=== PATIENT | female | born 1950 | race Two or more races ===

== ENCOUNTER 2019-01-03 05:44 | Day surgery (SDC) | payer MEDICARE, BC ==
--- NOTE | 2019-01-02 18:00 | Pre-op HX & Phy Repo 2 SIG ---
DATE OF ADMISSION: 01/03/2019 DATE OF SURGERY: 01/03/2019. PREOPERATIVE DIAGNOSIS: Puckering of macula, right eye. BRIEF NOTE: This is a first [place] admission for the patient. This is a very nice 68-year-old lady, who complained of blurred vision in the right eye for several months. On examination, she was found to have a dense epiretinal membrane on that side and is admitted for a pucker peel. PAST OCULAR HISTORY: Remarkable for cataract surgery done in both eyes in the past. She also has diabetes with minimal diabetic retinopathy. She is admitted for a pars plana vitrectomy with membrane dissection and endolaser as needed on the right. PAST MEDICAL HISTORY: Remarkable for diabetes since 2008. She is controlled on metformin. MEDICATIONS: She also uses losartan, alendronate, montelukast, and fluticasone. She takes atorvastatin for elevated cholesterol. ALLERGIES: She has no known allergies. OCULAR EXAMINATION: Best vision at the time of admission was 20/70 in the right eye and 20/30- in the left with pressures of 17 and 16. The anterior segments were quiet with posterior chamber lenses well positioned in either eye. Fundus examination showed a 0.3 cup in either eye. The right eye showed a moderately dense epiretinal membrane with evidence of retinal thickening and edema. No kingsley macular hole was seen. The left fundus appeared benign but no significant diabetic changes. The macula was benign on this side. ASSESSMENT: Puckering of macula, right eye. PLAN: The plan is to perform a pars plana vitrectomy with membrane peel and endolaser as needed and a possible gas injection. The risks and benefits of surgery have been gone over with the patient with the potential for infection, hemorrhage, glaucoma, and remote possibility of loss of the eye. The risk of anesthesia was discussed. The patient understands and consents to the surgery, which will be performed tomorrow morning. Bob Ma M.D. DR: FOREIGN JOB#: [id number] CC:
[~2019-01-03] VITALS: Ht 147.3 cm; Wt 70.3 kg
[2019-01-03] VITALS (10 sets, daily range): BP systolic 114–145; BP diastolic 57–78
[2019-01-03] MEDS ORDERED: Indocyanine Green 25mg Inj INJ ONE ×2 (06:00→07:15)
[2019-01-03] MEDS ORDERED: Pred Forte 1% Opth Susp 1ml RIGHT EYE SCH (06:00)
[2019-01-03] MEDS: Phenylephrine 2.5% Op 2ml Soln RIGHT EYE SCH ×3 (06:24→06:59)
[2019-01-03] MEDS: Vigamox Opth Soln 3ml RIGHT EYE SCH ×3 (06:24→06:59)
[2019-01-03] MEDS: Flurbiprofen 0.03% Opth Sol 2.5ml RIGHT EYE SCH ×3 (06:24→06:59)
[2019-01-03] MEDS: Cyclopentolate 1% Opth Sol 2ml RIGHT EYE SCH ×3 (06:24→06:59)
[2019-01-03] MEDS ORDERED: VITAMIN B122500 MCG PO (06:51)
[2019-01-03] MEDS ORDERED: LISINOPRIL10 MG ORAL (06:51)
[2019-01-03] MEDS ORDERED: METFORMIN HCL500 M1 ORAL (06:51)
--- NOTE | 2019-01-03 07:36 | Pre-Procedure Note/Attestation ---
Pre-Procedure Note/Attestation Complete Prior to Procedure Planned Procedure: right Procedure Narrative: PPV, ICG assisted membrane peel, possible endolaser, possible gas injection Right eye Indications for Procedure Pre-Operative Diagnosis: Puckering of macula right eye Attestation I attest that I discussed the nature of the procedure; its benefits; risks and complications; and alternatives (and the risks and benefits of such alternatives ), prior to the procedure, with the patient (or the patient's legal dental sales representative). I attest that, if there was a reasonable possibility of needing a blood transfusion, the patient (or the patient's legal dental sales representative) was given the [facility] standardized written summary, pursuant to the [place] Elisabet Blood Safety Act ([place] Health and Safety Code # 1645, as amended). I attest that I re-evaluated the patient just prior to the surgery and that there has been no change in the patient's H&P, except as documented below: Bob Ma MD Jan 03, 2019 07:36
[2019-01-03] MEDS ORDERED: HYDROcodone/Acetamin 5/325 tab ORAL PRN (07:45)
[2019-01-03] MEDS ORDERED: NS Irrig 1000ml ONE (09:00)
[2019-01-03] MEDS ORDERED: Propofol 200mg/20ml IV ONE (09:00)
[2019-01-03] MEDS ORDERED: LR 1000ml ONE (09:00)
[2019-01-03] MEDS ORDERED: Sterile Water Irrig 1000ml IRRIG ONE (09:00)
[2019-01-03] MEDS ORDERED: fentaNYL 100 mcg/2 mL IV ONE (09:00)
[2019-01-03] MEDS ORDERED: LR 1000ml 1,000 ML IVLG SCH (09:28)
--- NOTE | 2019-01-03 09:28 | Anethesia Preoperative Eval ---
Anesthesia Pre-op PMH/ROS General Date of Evaluation: Jan 03, 2019 Time of Evaluation: 08:55 Anesthesiologist: Benjamin ASA Score: ASA 3 Mallampati Score Class I : Soft palate, uvula, fauces, pillars visible Class II: Soft palate, uvula, fauces visible Class III: Soft palate, base of uvula visible Class IV: Only hard plate visible Mallampati Classification: Class II Surgeon: Francesca Diagnosis: Diabetic retinopathy Surgical Procedure: R eye PPV Anesthesia History: none Social History: smoking - h/o Family History: no anesthesia problems Allergies: Coded Allergies: No Known Allergies (Unverified , 01/02/19) Medications: see eMAR Patient NPO?: Yes Past Medical History Cardiovascular: Reports: HTN - mild, stable; Denies: CAD, PA, valve dz, arrhythmia, other Pulmonary: Reports: JORDANA; Denies: asthma, COPD, other Gastrointestinal/Genitourinary: Reports: GERD; Denies: CRI, ESRD, other Neurologic/Psychiatric: Denies: dementia, CVA, depression/anxiety, TIA, other Endocrine: Reports: DM - stable on pills; Denies: hypothyroidism, steroids, other HEENT: Reports: cataract (L), cataract (R) - bilateral s/p Sx Hematology/Immune: Denies: anemia, DVT, bleeding disorder, other Musculoskeletal/Integumentary: Reports: DJD; Denies: OA, RA, DDD, edema, other Other: obesity PMH Narrative: as above PSxH Narrative: bilateral cataracts, Elbow Sx Anesthesia Pre-op Phys. Exam Physician Exam Last Vital Signs Date Time Temp Pulse Resp B/P (MAP) Pulse Ox O2 Delivery O2 Flow Rate FiO2 01/03/19 06:26 Room Air 01/03/19 06:26 97.9 71 18 120/63 97 Constitutional: NAD Neurologic: CN 2-12 intact Cardiovascular: RRR, no M/R/G Respiratory: CTA Gastrointestinal: other - obesity Airway Exam Mallampati Score: Class II MO: limited Neck: short ROM: limited Teeth: missing Dentures: no upper, no lower Anesthesia Pre-op A/P Labs Chemistry Test 01/03/19 06:05 Potassium Level 3.8 MMOL/L (3.5-5.1) Studies Pre-op Studies: EKG - NSR Risk Assessment & Plan Assessment: ASA 3 Plan: MAC with retrobulbar block Status Change Before Surgery: No Pre-Antibiotics Drug: none Chinedu Alexander MD Jan 03, 2019 09:28
[2019-01-03] MEDS ORDERED: fentaNYL 100 mcg/2 mL IV PRN (09:30)
--- NOTE | 2019-01-03 10:09 | Brief Operative Note ---
Immediate Post Operative Note Operative Note Chief Complaint: Distorted vision Right eye Pre-op Diagnosis: Puckering of macula right eye Procedure: PPV, ICG assisted membrane peel, Endolaser 510 spots, Air-fluid exchange Right eye Post-op Diagnosis: same as pre-op plus - Pre existing inferior retinal hole Surgeon: fahad Anesthesiologist: Benjamin Anesthesia: MAC Specimen: none Complications: none Condition: stable Fluids: Per Anesthesia Estimated Blood Loss: none Drains: none Implant(s) used?: No Bob Ma MD Jan 03, 2019 10:09
--- NOTE | 2019-01-03 10:09 | Immediate Post-Op Evaluation ---
Immediate Post-Op Evalulation Immediate Post-Op Evalulation Procedure: R eye PPV membrane peel laser treatment fluid to gas exchange Date of Evaluation: Jan 03, 2019 Time of Evaluation: 10:08 IV Fluids: 300 Blood Products: none Estimated Blood Loss: min Urinary Output: none Blood Pressure Systolic: 132 Blood Pressure Diastolic: 76 Pulse Rate: 72 Respiratory Rate: 20 O2 Sat by Pulse Oximetry: 98 Temperature (Fahrenheit): 97.7 Pain Score (1-10): 1 Nausea: No Vomiting: No Complications none Patient Status: awake, patent, none Hydration Status: adequate Chinedu Alexander MD Jan 03, 2019 10:09
[2019-01-03] MEDS ORDERED: Lidocaine 2% MPF 5ml Vial INJ ONE (10:18)
[2019-01-03] MEDS ORDERED: Maxitrol Opth Oint 3.5gm ONE (10:18)
[2019-01-03] MEDS ORDERED: EPINEPHrine 1mg/1ml Amp ONE (10:18)
[2019-01-03] MEDS ORDERED: Tetracaine 0.5% Opth 4ml Soln ONE (10:19)
[2019-01-03] MEDS ORDERED: Dexamethasone 4mg/ml vial ONE (10:19)
[2019-01-03] MEDS ORDERED: Kenalog-10 5ml Inj ONE (10:19)
[2019-01-03] MEDS ORDERED: BSS 500ml btl ONE (10:19)
[2019-01-03] MEDS ORDERED: Povidone-Iodine 5% opth solution ONE (10:19)
[2019-01-03] MEDS ORDERED: BSS 15ml BTL ONE (10:19)
[2019-01-03] MEDS ORDERED: Bupivacaine 0.75% 30ml vial INJ ONE (10:19)
[2019-01-03] MEDS ORDERED: Sodium Hyaluronate 10 mg/ml 0.85ml ONE (10:19)
[2019-01-03] MEDS ORDERED: Pred Forte 1% Opth Susp 1ml ONE (10:19)
--- NOTE | 2019-01-03 12:50 | 48 Hour Post Anesthesia Eval ---
Post Anesthesia Evaluation Procedure: R eye PPV membrane peel laser treatment fluid to gas exchange Date of Evaluation: Jan 03, 2019 Time of Evaluation: 12:49 Blood Pressure Systolic: 142 0: 78 Pulse Rate: 64 Respiratory Rate: 20 Temperature (Fahrenheit): 97.6 O2 Sat by Pulse Oximetry: 98 Airway: patent Nausea: No Vomiting: No Pain Intensity: 1 Hydration Status: adequate Cardiopulmonary Status: stable Mental Status/LOC: patient returned to baseline Follow-up Care/Observations: n/a Post-Anesthesia Complications: none Follow-up care needed: ready to discharge Chinedu Alexander MD Jan 03, 2019 12:50
--- NOTE | 2019-01-03 20:30 | Operative Note - Dictated ---
DATE OF OPERATION: 01/03/2019 PREOPERATIVE DIAGNOSIS: Epiretinal membrane with macular edema, right eye. POSTOPERATIVE DIAGNOSES: Epiretinal membrane with macular edema and preexisting inferior retinal hole, right eye. SURGEON: Bob Ma M.D. PARKING ANALYST: None. ANESTHESIA: Local with sedation. ANESTHESIOLOGIST: Chinedu Alexander M.D. JUSTIFICATION FOR SURGERY: This 68-year-old lady noted distorted vision in the right eye associated with a dense epiretinal membrane. BRIEF NOTE: The patient brought to the operative room, placed on operating room table in supine position. After a time-out was performed and agreed upon by the staff, retrobulbar and Van Lint blocks were given in the standard way to the right eye. The eye was then prepped and draped in the normal manner. A lid speculum inserted into the right eye. Using a 23-gauge trocar system, cannulas were placed in all except the infranasal quadrant. Infusion secured inferotemporally. Vitrectomy was begun posterior to the lens implant. Adherent vitreous was removed followed by peripheral vitrectomy leaving a small vitreous skirt. The posterior hyaloid had previously elevated and this was removed. Examination using a scleral depressor showed a large round hole at the 6:30 position anterior to the equator. It appeared that he had a previous treatment or auto-demarcation that had been applied but it was felt that the treatment was in need of reinforcement. A posterior viewing lens was then inserted and using ICG dye, one drop, the posterior membrane and the internal limiting lamina were stained. End gripping forceps were used to elevate and remove the epiretinal membrane followed by the internal limiting lamina in an area roughly 3.5 to 4 disc diameters in size. No problems were encountered. The remnants of the membranes were evacuated with the vitreous cutter. Using laser probe and the scleral depressor, additional laser spots were placed inferiorly to surround the retinal hole. A total of 510 lesions were applied. No other pathology was seen in the retinal periphery. An air-fluid exchange was then performed to 95% fill. Superior cannulas were then removed from the eye, but just prior to this Kenalog 0.5 milligram was injected over the posterior pole to retard inflammation. The 2 superior sclerotomies were closed with a single suture of 8-0 Vicryl with the knot rotated. The infusion cannula was removed and the sclerotomy was closed in a similar fashion. Subconjunctival Decadron and gentamicin were injected inferiorly and topical prednisolone drops, atropine drops, moxifloxacin drops, and Maxitrol ointment were instilled. The eye was patched and shielded and the patient taken to recovery in excellent condition. There were no complications. Bob Ma M.D. DR: Dc JOB#: [id number] CC: Bob Ma M.D.; Fax#: [phone]
== END 2019-01-03 12:30 | disposition home or self-care (01) ==
LOC: SUR 05:44
DX: E11.311 Type 2 diabetes mellitus with unspecified diabetic retinopathy with macular edema (principal); H35.371 Puckering of macula, right eye; I10 Essential (primary) hypertension; Z79.82 Long term (current) use of aspirin; Z79.899 Other long term (current) drug therapy; Z79.84 Long term (current) use of oral hypoglycemic drugs; F17.200 Nicotine dependence, unspecified, uncomplicated; G47.33 Obstructive sleep apnea (adult) (pediatric); K21.9 Gastro-esophageal reflux disease without esophagitis; E66.9 Obesity, unspecified; Z68.32 Body mass index [BMI] 32.0-32.9, adult
CPT/HCPCS: 36415; 67039; 67042; 82962; 84132; J0171; J1100; J2704; J3010; J3301; J3470; J3490; 94003; 94150